=== PATIENT | female | born 1970 | race Caucasian/White ===

== ENCOUNTER 2024-02-09 08:17 | Outpatient (CLI) | payer OTHER, SELFPAY ==
--- NOTE | 2024-02-09 08:30 | US_ITS ---
WS: [id number] ULTRASOUND SOFT TISSUES RIGHT supraclavicular region. HISTORY: R22.1 - Localized swelling, mass and lump, neck COMPARISON: None available. TECHNIQUE: 2-D and color Doppler imaging is submitted. There is a soft tissue mass with mixed cystic and solid component in the RIGHT supraclavicular region . This is not associated with the AC joint or SC joint. This soft tissue mass measures 2.4 x 2.1 x 2. 5 cm. Irregular soft tissue centrally. No increased vascularity. IMPRESSION: Complex soft tissue mass in the RIGHT supraclavicular region. This will need to be further evaluated. This may be a resolving hematoma or necrotic lymph node. There is no increased vascularity. Recommen d follow-up neck CT with IV contrast.
== END 2024-02-09 08:18 | disposition home or self-care (01) ==
LOC: RAD 08:18
PROVIDERS: PCP Family Medicine; Visit Provider Family Medicine
DX: R22.1 Localized swelling, mass and lump, neck (principal)
CPT/HCPCS: 76536

== ENCOUNTER 2024-03-09 14:27 | Outpatient (CLI) | payer OTHER, SELFPAY ==
--- NOTE | 2024-03-09 14:30 | CT_ITS ---
WS: [id number] CT NECK WITH CONTRAST HISTORY: R22.1 - Localized swelling, mass and lump, neck TECHNIQUE: Contiguous 2 mm axial images are performed through the neck with intravenous contrast. Sag ittal and coronal reformats are also submitted. All CT scans at [facility] use at least one o f these dose optimization techniques: automated exposure control; mA and/or kV adjustment per patient size (includes targeted exams where dose is matched to clinical indication); or iterative reconstruc tion. CONTRAST: CONTRAST: Omnipaque 350; 100 mL IV. DLP: 126.72 mGy.cm COMPARISON: Soft tissue ultrasound 02/09/2024. Palpable mass is just above the mid RIGHT clavicle. RIGHT clavicle is undergone prior extensive ORIF. There is significant artifact from the hardware. Well-rounded heterogeneous mass measures 1.5 x 1.5 cm. This mass has decreased in size as compared to the prior ultrasound. This is very nonspecific. No significant enhancement. The etiology cannot be determined due to the extensive artifact. Nasopharynx, oropharynx, hypopharynx and larynx are unremarkable. No soft tissue masses or abnormal e nhancement. Torus tubarius and fossa of Rosenmuller and parapharyngeal fat are normal. No significant lymphadenopathy is identified. Thyroid gland and salivary glands are normally enhancing with no masses. Advanced degenerative changes in the cervical spine. Most significant disc space narrowing and osteop hytosis at C4-5, C5-6 and C6-7. Visualized portions of the skull base demonstrate no abnormalities. Orbits and globes are within norm al limits. No soft tissue masses. Moderate mucoperiosteal thickening in the sphenoid sinus. No air-fluid levels. Paraseptal emphysematous changes. CT/CT neck w con* [id number] IMPRESSION: 1. Palpable mass near the RIGHT supraclavicular region is identified measuring 1.5 x 1.5 cm. Mass is difficult to evaluate well due to this significant artif act from the patient's extensive RIGHT clavicular ORIF. This mass is measuring smaller in size as compared to the ultrasound of 02/09/2024. This is a very nons pecific mass. I suspect this may be a resolving hematoma or a fluid collection associated with the clavicular ORIF. There is no additional mass. Recommend cli nical follow-up. If this mass increases in size and may need to be biopsied or surgically removed. 2. No lymphadenopathy within the cervical chains.
[2024-03-09] MEDS: iohexol 350 mg/mL 500 mL Btl (per mL) IV (14:59)
== END 2024-03-09 14:28 | disposition home or self-care (01) ==
PROVIDERS: PCP Family Medicine; Visit Provider Family Medicine
DX: R22.1 Localized swelling, mass and lump, neck (principal); J43.8 Other emphysema
CPT/HCPCS: 70491; Q9967